=== PATIENT | male | born 2000 | race African-American/Black ===

== ENCOUNTER 2024-07-02 02:02 | Emergency (ER) | payer OTHER ==
[~2024-07-02] VITALS: Ht 175.3 cm; Wt 67.9 kg
[2024-07-02 02:13] VITALS: TEMP 98.5
[2024-07-02 05:04] VITALS: BP 136/78; PULSE 70; RESP 20; O2SAT 100
[2024-07-02] MEDS ORDERED: NAPH15DR75 OU (06:15)
[2024-07-02] MEDS ORDERED: ACET-66 PO (06:15)
== END 2024-07-02 06:33 | disposition home or self-care (01) ==
LOC: EMS 02:02
DX: B30.9 Viral conjunctivitis, unspecified (principal)
CPT/HCPCS: 99282; Z7502